=== PATIENT | male | born 1960 | race Caucasian/White ===

== ENCOUNTER → 2017-07-24 12:08 | Outpatient (CLI) | payer OTHER, SELFPAY ==
[2017-07-24 13:09] LABS: Add Manual Diff / Slide Review NO; Basophils Percent Auto 0.5 % (0-2); Eosinophils Percent Auto 3.9 % (2-4); Hematocrit 43.9 % (41-53); Hemoglobin 15.3 g/dL (13.5-17.5); Lymphocytes Percent Auto 42.1 % (25-40); Mean Corpuscular HGB Conc 34.7 % (30-36); Mean Corpuscular Hemoglobin 31.9 PG (26-34); Monocytes Percent Auto 7.1 % (3-14); Neutrophils Absolute Auto 2200 /uL (3000-5900); Neutrophils Percent Auto 46.4 % (50-75); Platelet Count 247 X10^3/uL (150-400); Red Blood Cell Count 4.78 X10^6/uL (4.5-5.9); Red Cell Distribution Width 12.7 % (11.6-14.8); White Blood Cell Count 4.8 X10^3/uL (4.5-11.0)
[2017-07-24 13:14] LABS: Alanine Aminotransferase 37 IU/L (21-72); Albumin 4.8 g/dL (3.5-5.0); Albumin Globulin Ratio 1.5 (1.0-2.8); Alkaline Phosphatase 38 U/L (38-126); Aspartate Aminotransferase 36 IU/L (17-59); BUN Creatinine Ratio 23.8 (6-22); Bilirubin Total 0.6 mg/dL (0.2-1.3); Calcium 9.8 mg/dL (8.4-10.2); Estimated Glomerular Filt Rate > 60.0 mL/min (>60); Globulin 3.2 g/dL (1.7-4.1); Glucose 119 mg/dL (70-100); HEMOLYSIS < 15 (0-50); Potassium 4.2 mmol/L (3.4-5.1); Sodium 143 mmol/L (137-145)
== END ==
PROVIDERS: PCP Family Medicine; Visit Provider Internal Medicine
DX: R07.9 Chest pain, unspecified (principal)
CPT/HCPCS: 80053; 85025; 86677

== ENCOUNTER → 2017-08-08 10:57 | Outpatient (CLI) | payer OTHER, SELFPAY ==
[2017-08-08 12:44] LABS: Occult Blood 1 Negative (Negative); Occult Blood 2 Negative
[2017-08-08 12:45] LABS: Occult Blood 3 Negative
== END ==
PROVIDERS: Family Provider Family Medicine; PCP Family Medicine; Visit Provider Internal Medicine
DX: R07.9 Chest pain, unspecified (principal)
CPT/HCPCS: 82270

== ENCOUNTER → 2018-05-27 11:31 | Outpatient (CLI) | payer OTHER, SELFPAY ==
--- NOTE | 2018-05-27 11:33 | DI.RAD.S_ITS ---
PROCEDURE: XR CHEST 2V INDICATIONS: chest pain TECHNIQUE: 2 views of the chest were acquired. COMPARISON: None. FINDINGS: Surgical changes and devices: None. Lungs and pleura: Lungs are clear. No pleural effusions or pneumothorax. Mediastinum: Mediastinal contours are normal. Heart size is normal. Bones and chest wall: No suspicious bony abnormalities. Soft tissues appear unremarkable. IMPRESSION: Normal for age, source of current chest pain symptoms is not seen. Dictated by: Jj Loving M.D. on 05/27/2018 at 13:07 Approved by: Jj Loving M.D. on 05/27/2018 at 13:08
== END ==
PROVIDERS: Family Provider Family Medicine; PCP Family Medicine; Visit Provider Family Medicine
DX: R07.9 Chest pain, unspecified (principal)
CPT/HCPCS: 71046

== ENCOUNTER → 2018-06-03 08:53 | Outpatient (CLI) | payer OTHER, SELFPAY ==
--- NOTE | 2018-06-03 08:56 | DI.RAD.S_ITS ---
PROCEDURE: FL UPPER GI W AIR INDICATIONS: CHEST PAIN COMPARISON: [facility], CR, XR CHEST 2V, 05/27/2018, 11:38. [facility], CT, THORAX WITHOUT CONTRAST, 09/28/2008, 7:48. FINDINGS: KUB: Preprocedural plate glass installer helper film demonstrates a nonobstructive bowel gas pattern. No suspicious abdominal calcifications. Visualized solid organ contours appear normal. Bony structures appear unremarkable. Esophagus: There is poor air contrast evaluation on this exam. There is normal esophageal peristalsis. No strictures, extrinsic mass effects, or diverticula. No hiatal hernia or elicited gastroesophageal reflux. There is normal transit of a calibrated barium tablet through the esophagus. There is mild multilevel degenerative change of the cervical spine, partially imaged on this exam. Stomach: The stomach is normally distensible, with normal rugal fold thickness. No mucosal masses or ulcers. Pylorus and duodenal bulb appear normal in morphology. Duodenal folds are normal in thickness as well. IMPRESSION: No upper gastrointestinal fluoroscopy findings to explain patient's reported chest pain. Consider followup CT of the chest or an esophagogastroduodenoscopy (EGD) for further evaluation if there is continued clinical concern. Dictated by: Jared Hirsch M.D. on 06/03/2018 at 15:20 Approved by: Jared Hirsch M.D. on 06/03/2018 at 15:30
[2018-06-03 10:09] LABS: Add Manual Diff / Slide Review NO; Basophils Absolute Auto 0 /uL (0-100); Basophils Percent Auto 0.9 % (0-2); Eosinophils Absolute Auto 100 /uL (0-450); Eosinophils Percent Auto 3.4 % (2-4); Hemoglobin 15.3 g/dL (13.5-17.5); Lymphocytes Absolute Auto 1800 /uL (1100-4500); Lymphocytes Percent Auto 44.2 % (25-40); Mean Corpuscular HGB Conc 33.9 % (30-36); Mean Corpuscular Hemoglobin 31.3 PG (26-34); Mean Corpuscular Volume 92.2 fL (80-100); Monocytes Absolute Auto 300 /uL (0-900); Monocytes Percent Auto 8.2 % (3-14); Neutrophils Absolute Auto 1700 /uL (1500-7000); Neutrophils Percent Auto 43.3 % (50-75); Platelet Count 247 X10^3/uL (150-400); Red Blood Cell Count 4.88 X10^6/uL (4.5-5.9); Red Cell Distribution Width 12.6 % (11.6-14.8)
[2018-06-03 10:25] LABS: Alanine Aminotransferase 37 IU/L (21-72); Albumin 4.8 g/dL (3.5-5.0); Albumin Globulin Ratio 1.7 (1.0-2.8); Alkaline Phosphatase 35 U/L (38-126); Amylase 64 U/L (30-110); Aspartate Aminotransferase 37 IU/L (17-59); BUN Creatinine Ratio 18.9 (6-22); Blood Urea Nitrogen 17 mg/dL (9-20); Calcium 9.4 mg/dL (8.4-10.2); Carbon Dioxide 30 mmol/L (22-32); Chloride 98 mmol/L (98-107); Cholesterol 198 mg/dL (140-199); Estimated Glomerular Filt Rate > 60.0 mL/min (>60); Globulin 2.8 g/dL (1.7-4.1); Glucose 100 mg/dL (70-100); HDL Cholesterol 98 mg/dL (40-60); HEMOLYSIS < 15 (0-50); LDL Cholesterol Calculated 89 mg/dL (<100); Lipase 62 U/L (23-300); Potassium 4.2 mmol/L (3.4-5.1); Sodium 137 mmol/L (137-145); Total Protein 7.6 g/dL (6.3-8.2); Triglycerides 53 mg/dL (35-150)
[2018-06-03 10:43] LABS: Thyroid Stimulating Hormone 2.64 uIU/mL (0.47-4.68)
== END ==
PROVIDERS: Family Provider Family Medicine; PCP Family Medicine; Visit Provider Family Medicine
DX: R07.9 Chest pain, unspecified (principal)
CPT/HCPCS: 36415; 74247; 80053; 80061; 82150; 83690; 84443; 85025; G0103

== ENCOUNTER → 2019-10-04 08:08 | Outpatient (CLI) | payer OTHER, SELFPAY ==
--- NOTE | 2019-10-04 | DI.RAD.S_ITS ---
PROCEDURE: FL JOINT INJECTION LARGE RT INDICATIONS: Other sprain of right hip, initial encounter COMPARISON: None. TECHNIQUE: The indications, alternatives, benefits, risks, and complications of the procedure were explained to the patient. Written informed consent was obtained and placed in the chart. The patient was placed in an appropriate position on the fluoroscopy table, and a site was chosen for percutaneous access under fluoroscopic guidance. The site was prepped and draped in a sterile fashion. Local anesthetic was administered using a 1% lidocaine solution. A hypodermic or spinal needle was then used to access the symptomatic joint. Intra-articular location of the needle tip was confirmed by injecting a small amount of contrast, followed by steroid administration. The needle was then withdrawn, and a bandage applied to the puncture site. FINDINGS: Joint injected: Right hip joint Medications injected: 4 mL total of 1 cc 40 mg/mL Kenalog and 3 cc 0.5% Ropivacaine mixture. Patient's pain before injection: 3 out of 10. Patient's pain after injection: 0 out of 10. Complications: None. IMPRESSION: Successful fluoroscopically guided administration of steroid and anaesthetic solution into the right hip joint. Dictated by: Rodolfo Lugo M.D. on 10/04/2019 at 11:02 Approved by: Rodolfo Lugo M.D. on 10/04/2019 at 11:10
== END ==
PROVIDERS: Family Provider Family Medicine; PCP Family Medicine; Referring Provider Orthopaedic Surgery; Visit Provider Orthopaedic Surgery
DX: S73.191A Other sprain of right hip, initial encounter (principal); X58.XXXA Exposure to other specified factors, initial encounter
CPT/HCPCS: 20610; 77002

== ENCOUNTER → 2019-11-18 10:02 | Outpatient (CLI) | payer OTHER, SELFPAY ==
--- NOTE | 2019-11-18 10:09 | DI.CT.S_ITS ---
PROCEDURE: CT SINUS SCREEN WO CON INDICATIONS: Other disturbances of smell and taste TECHNIQUE: Noncontrast 3.0 mm axial images acquired from the frontal sinuses to the mid-sella, with coronal and sagittal reformats. For radiation dose reduction, the following was used: automated exposure control, adjustment of mA and/or kV according to patient size. COMPARISON: None. FINDINGS: Image quality: Excellent. Maxillary Sinuses: No bony remodeling or destruction. There is [id number] right-sided and no left-sided mucosal thickening seen. There is a mucous retention cyst versus polyp seen involving the left maxillary sinus. Ethmoid Air Cells: No bony remodeling or destruction. [id number] mucosal thickening is seen within the ethmoid air cells. Sphenoid Sinuses: No bony remodeling or destruction. Sinuses are clear. Frontal Sinuses: No bony remodeling or destruction. Sinuses are clear. Ostiomeatal Complexes: Ostiomeatal complexes are patent, yet they are constitutionally narrowed. Bilateral infraorbital air cell septations can be seen. Miscellaneous: Visualized intra-orbital contents are normal. There is a prominent left-sided jed bullosa is seen, with mucosal thickening and calcification seen within the jed bullosa, as on series 4, image 26. . There is moderate rightward nasal septal deviation. IMPRESSION: Paranasal sinus disease is seen, which is most prominent within the inferior right maxillary sinus. There is an abnormal left jed bullosa is seen, with mucosal thickening and calcification seen within it. Moderate rightward nasal septal deviation can be seen. Constitutionally narrowed ostiomeatal complexes. Dictated by: Dandre Allison M.D. on 11/18/2019 at 9:47 Approved by: Dandre Allison M.D. on 11/18/2019 at 9:49
== END ==
PROVIDERS: Family Provider Family Medicine; PCP Family Medicine; Referring Provider Otolaryngology; Visit Provider Otolaryngology
DX: R43.8 Other disturbances of smell and taste (principal); J32.8 Other chronic sinusitis; J34.2 Deviated nasal septum
CPT/HCPCS: 70486

== ENCOUNTER → 2020-06-02 10:34 | Outpatient (CLI) | payer OTHER, SELFPAY ==
[2020-06-02] MEDS: COVID-19 VACC #1, MRNA(MOD) 100 MCG/0.5 ML VIAL IM (10:38)
== END ==
PROVIDERS: Family Provider Family Medicine; PCP Family Medicine; Visit Provider Internal Medicine
DX: Z23 Encounter for immunization (principal)
CPT/HCPCS: 0011A; 91301

== ENCOUNTER → 2020-06-29 08:55 | Outpatient (CLI) | payer OTHER, SELFPAY ==
[2020-06-29 11:02] LABS: Add Manual Diff / Slide Review NO; Basophils Absolute Auto 0 /uL (0-100); Basophils Percent Auto 0.6 % (0-2); Eosinophils Absolute Auto 200 /uL (0-450); Eosinophils Percent Auto 4.2 % (2-4); Hematocrit 45.6 % (41-53); Hemoglobin 15.6 g/dL (13.5-17.5); Lymphocytes Absolute Auto 1800 /uL (1100-4500); Lymphocytes Percent Auto 49.3 % (25-40); Mean Corpuscular HGB Conc 34.2 % (30-36); Mean Corpuscular Volume 93.4 fL (80-100); Monocytes Absolute Auto 300 /uL (0-900); Monocytes Percent Auto 9.2 % (3-14); Neutrophils Absolute Auto 1400 /uL (1500-7000); Neutrophils Percent Auto 36.7 % (50-75); Platelet Count 242 X10^3/uL (150-400); Red Blood Cell Count 4.88 X10^6/uL (4.5-5.9); Red Cell Distribution Width 12.6 % (11.6-14.8); White Blood Cell Count 3.7 X10^3/uL (4.5-11.0)
[2020-06-29 11:36] LABS: Alanine Aminotransferase 29 IU/L (<50); Albumin 4.5 g/dL (3.5-5.0); Albumin Globulin Ratio 1.5 (1.0-2.8); Alkaline Phosphatase 42 U/L (38-126); Aspartate Aminotransferase 38 IU/L (17-59); Bilirubin Total 0.9 mg/dL (0.2-1.3); Blood Urea Nitrogen 15 mg/dL (9-20); Calcium 9.7 mg/dL (8.4-10.2); Carbon Dioxide 28 mmol/L (22-32); Chloride 101 mmol/L (98-107); Estimated Glomerular Filt Rate > 60.0 mL/min (>60); Glucose 99 mg/dL (80-110); HEMOLYSIS < 15 (0-50); Potassium 4.5 mmol/L (3.4-5.1); Sodium 137 mmol/L (137-145); Total Protein 7.5 g/dL (6.3-8.2)
[2020-06-29 12:04] LABS: Prostate Specific Antigen Scrn 1.48 ng/mL (0.1-4.0)
== END ==
PROVIDERS: Family Provider Family Medicine; PCP Registered Nurse; Referring Provider Registered Nurse; Visit Provider Registered Nurse
DX: Z00.00 Encounter for general adult medical examination without abnormal findings (principal); Z12.5 Encounter for screening for malignant neoplasm of prostate; Z13.220 Encounter for screening for lipoid disorders
CPT/HCPCS: 36415; 80053; 85025; G0103

== ENCOUNTER → 2020-06-30 09:29 | Outpatient (CLI) | payer OTHER, SELFPAY ==
[2020-06-30] MEDS: COVID-19 VACC #2, MRNA(MOD) 100 MCG/0.5 ML VIAL IM (09:42)
== END ==
PROVIDERS: Family Provider Family Medicine; PCP Family Medicine; Visit Provider Internal Medicine
DX: Z23 Encounter for immunization (principal)
CPT/HCPCS: 0012A; 91301

== ENCOUNTER → 2020-07-04 07:08 | Outpatient (CLI) | payer OTHER, SELFPAY ==
--- NOTE | 2020-07-04 07:09 | DI.MRI.S_ITS ---
PROCEDURE: MR HAND RT WO CON INDICATIONS: Right hand pain TECHNIQUE: Noncontrast coronal T1 spin echo and T2 fast spin echo with fat saturation, axial proton density fast spin echo and T2 fast spin echo with fat saturation, sagittal T1 spin echo and STIR through the hand and fingers. COMPARISON: None. FINDINGS: Image quality: Excellent. Bones: The bones are normally aligned, without marrow contusions or fractures. No intra-osseous lesions. Mild degenerative changes are seen at the 1st carpometacarpal and 1st metacarpophalangeal joints. Subchondral cystic changes are seen at the 3rd and 5th metatarsal heads that are most likely degenerative. Soft tissues: Visualized muscles demonstrate normal bulk and internal signal. No intramuscular masses identified. No ganglion cysts. There is focal perforation of the central triangle fibrocartilage disc that is most likely degenerative. Subtle edema is seen at the dorsal aspect of the 2nd through 4th fingers that may indicate subtle tenosynovitis. IMPRESSION: 1. Possible subtle tenosynovitis of the 2nd through 4th fingers at the level of the proximal phalanges. 2. Focal degenerative perforation of the central triangular fibrocartilage disc. 3. 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 Dictated by: Collins Martinez M.D. on 07/04/2020 at 8:58 Approved by: Collins Martinze M.D. on 07/04/2020 at 9:11
== END ==
PROVIDERS: Family Provider Family Medicine; PCP Registered Nurse; Referring Provider Registered Nurse; Visit Provider Registered Nurse
DX: R29.898 Other symptoms and signs involving the musculoskeletal system (principal); M79.641 Pain in right hand; M18.11 Unilateral primary osteoarthritis of first carpometacarpal joint, right hand; M19.041 Primary osteoarthritis, right hand; R20.2 Paresthesia of skin
CPT/HCPCS: 73218

== ENCOUNTER 2020-10-11 09:30 | Outpatient (RCR) | payer OTHER, SELFPAY ==
--- NOTE | 2020-10-09 15:57 | PT.OIE ---
Current Diagnoses Trochanteric bursitis, right hip (10/09/20) Iliotibial band syndrome, unspecified leg (10/09/20) Past Medical History (Last Reviewed 06/27/20 @ 18:40 by JEANETTE Cardona) Elevated BP without diagnosis of hypertension Paresthesia Right hand weakness Visit Care Team Role Provider Type JEANETTE Cardona Primary Care Provider Advanced Rehabilitator Specialty: Medical Address: [address] [place] [address], [address] Email: [email or web address] Esteban Trejo MD Attending Provider Physician Referring Provider Specialty: Orthopedic Surgery Address: [address] [place] [address], [address] Email: [email or web address] [facility] Initial Evaluation PT-OP-A Visit Information Start: 10/09/20 10:08 Freq: Status: Active Protocol: Document 10/09/20 11:00 AMB (Rec: 10/09/20 15:51 AMB [email or web address]) Out-Patient Physical Therapy Visit Information Visit Information Visit Type Initial Evaluation Visit Start Time 11:00 Visit Stop Time 11:45 Total Visit Minutes 45 Visit Number 1 PT-OP-B Current Condition Start: 10/09/20 10:08 Freq: Status: Active Protocol: Document 10/09/20 11:00 AMB (Rec: 10/09/20 11:52 AMB [id number]) Current Condition History of Current Condition Onset Date Chronic worst the past few months Current Complaints R hip pain- chronic History of Current Condition Serge reports right hip pain at least a year on and off pain. Cortisone shot made it worse. 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 Diagnosed with cervical spinal stenosis causing R hand numbness recently. Physical therapy years ago helped - liked the ultrasound. Hoping to be done with work soon. Stopped riding his mountain bike and hiking because of the pain. Years ago helping unload truck and fell and landed on R hip. Denies popping, catching. Can shoot up next to ribs, generally doesn't shoot down. Stepping laterally or twisting can cause sharp pain. Prior Treatments and Tests Previous PT helped, cortisone shots have not. Treatment Goals Patient/Caregiver Goals Reduce pain so that he can work with less pain. Prior Functional Status Baseline Function- ADL's Independent Baseline Function- Mobility Independent Current Functional Impairments (Reported) Functional Limitations- ADL's Has stopped exercising, pain with floor transfers Personal Factors Other Personal Factors That May Effect Needs to carry heavy (80#) and Therapy/Recovery work physically, cervical spinal stenosis PT-OP-C Subjective Start: 10/09/20 10:08 Freq: Status: Active Protocol: Document 10/09/20 11:00 AMB (Rec: 10/09/20 15:51 AMB [email or web address]) Patient Questionnaires Lower Extremity Functional Scale LEFS Score 60 LEFS Impairment 1 to 19% Impaired (Score 63-79 ) PT-OP-F Manual Assessment Start: 10/09/20 10:08 Freq: Status: Active Protocol: Document 10/09/20 11:00 AMB (Rec: 10/09/20 15:57 AMB [email or web address]) Manual Assessments Soft Tissue Assessment Soft Tissue Mobility Assessment tenderness at greater trochanter and proximal 1/3 of IT band PT-OP-K Range of Motion Start: 10/09/20 10:08 Freq: Status: Active Protocol: Document 10/09/20 11:00 AMB (Rec: 10/09/20 15:56 AMB [email or web address]) Hip Goniometric Range of Motion Hip ROM Limitations Comments tight hamstrings bilaterally, painful with Hip IR on the right PT-OP-L Special Tests Start: 10/09/20 10:08 Freq: Status: Active Protocol: Document 10/09/20 11:00 AMB (Rec: 10/09/20 15:56 AMB [email or web address]) Special Tests Hip Special Tests Scour Test Test Results - NIRMAL Test Results + PT-OP-M Strength Start: 10/09/20 10:08 Freq: Status: Active Protocol: Document 10/09/20 11:00 AMB (Rec: 10/09/20 15:56 AMB [email or web address]) Hip Strength Hip Manual Muscle Testing Right Flexion (L2) 4+ Good+ Extension (S1) 4+ Good+ Abduction 4+ Good+ Left Flexion (L2) 4+ Good+ Extension (S1) 4+ Good+ Abduction 4 Good PT-OP-Q Treatments Start: 10/09/20 10:08 Freq: Status: Active Protocol: Document 10/09/20 11:00 AMB (Rec: 10/09/20 15:56 AMB [email or web address]) Therapeutic Exercises Supine Exercises hamstring/IT band stretch Supine Exercise Name with band Reps/Minutes 30x2 Manual Therapy Treatment Soft Tissue Mobilization 1 Body Location R IT band Mobilization Type Cross-Friction,Myofascial Release Intensity/Depth Moderate Body Position Supine PT-OP-T Assessment and Plan Start: 10/09/20 10:08 Freq: Status: Active Protocol: Document 10/09/20 11:00 AMB (Rec: 10/09/20 15:51 AMB [email or web address]) Physical Therapy Assessment Rehab Potential Rehabilitation Potential Good Evaluation Complexity Number of Personal Factors/Comorbidities 1-2 Number of Body Systems Impaired 4 or More Clinical Presentation at Evaluation Stable Impairments Impairments Functional Activities, Functional Mobility,Pain,ROM, Soft Tissue Mobility,Strength Goals Three Impairment Strength Short Term Goal (STG) Serge will improve his strength so that he can lift 50# from the floor to waist height without an increase in pain. STG Duration 4 weeks One Impairment pain Short Term Goal (STG) Serge will be able to complete a floor transfer without an increase in hip pain. STG Duration 4 weeks Break Out Man Goal (LTG) Serge will be able to roll over in bed without hip pain. LTG Duration 8 weeks Two Impairment HEP Short Term Goal (STG) Serge will be independent and consistent with a HEP STG Duration 4 weeks Assessment Summary Assessment Serge attends physical therapy with pain and weakness in his right hip. This is limiting his ability to work as a cutter operator tile. He denies popping/clicking/ locking/giving way/numbness/ tingling, but does have significant discomfort with palpation over IT band and greater trochanter and pain with hip IR. He will benefit from PT to improve his hip mobility and stability so that he can continue to work and can return to his previous function of exercising. Physical Therapy Plan Frequency and Duration Frequency of Treatment 2 Duration of Treatment 8 weeks Plan of Care Start Date 10/09/20 Plan of Care End Date 12/04/20 Therapeutic Interventions Therapeutic Interventions Gait Training,Home Exercise Program,Manual Therapy, Neuromuscular Re-education, Self-Care/Home Management, Therapeutic Activities, Therapeutic Exercises Modalities Cold Pack/Ice Massage,Electric Stimulation,Hot Packs, Ultrasound Next Visit Focus/Plan Next Note Type Treatment Note Next Visit Plan Stretching and manual to IT band, strengthening lateral stabilizers
--- NOTE | 2020-10-09 15:58 | PT.OPPOC ---
Physical, Occupational & Speech Therapy At [facility] Current Diagnoses Trochanteric bursitis, right hip (10/09/20) Iliotibial band syndrome, unspecified leg (10/09/20) Visit Care Team Role Provider Type JEANETTE Cardona Primary Care Provider Advanced Fuel System Maintenance Worker Specialty: Medical Address: [address] [place] [address], [address] Email: [email or web address] Esteban Trejo MD Attending Provider Physician Referring Provider Specialty: Orthopedic Surgery Address: [address] [place] [address], [address] Email: [email or web address] Plan Of Care PT-OP-T Assessment and Plan Start: 10/09/20 10:08 Freq: Status: Active Protocol: Document 10/09/20 11:00 AMB (Rec: 10/09/20 15:51 AMB [email or web address]) Physical Therapy Assessment Rehab Potential Rehabilitation Potential Good Evaluation Complexity Number of Personal Factors/Comorbidities 1-2 Number of Body Systems Impaired 4 or More Clinical Presentation at Evaluation Stable Impairments Impairments Functional Activities, Functional Mobility,Pain,ROM, Soft Tissue Mobility,Strength Goals Three Impairment Strength Short Term Goal (STG) Serge will improve his strength so that he can lift 50# from the floor to waist height without an increase in pain. STG Duration 4 weeks One Impairment pain Short Term Goal (STG) Serge will be able to complete a floor transfer without an increase in hip pain. STG Duration 4 weeks Lumber Trimmer Goal (LTG) Serge will be able to roll over in bed without hip pain. LTG Duration 8 weeks Two Impairment HEP Short Term Goal (STG) Serge will be independent and consistent with a HEP STG Duration 4 weeks Assessment Summary Assessment Serge attends physical therapy with pain and weakness in his right hip. 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 He denies popping/clicking/ locking/giving way/numbness/ tingling, but does have significant discomfort with palpation over IT band and greater trochanter and pain with hip IR. He will benefit from PT to improve his hip mobility and stability so that he can continue to work and can return to his previous function of exercising. Physical Therapy Plan Frequency and Duration Frequency of Treatment 2x/week Duration of Treatment 8 weeks Plan of Care Start Date 10/09/20 Plan of Care End Date 12/04/20 Therapeutic Interventions Therapeutic Interventions Gait Training,Home Exercise Program,Manual Therapy, Neuromuscular Re-education, Self-Care/Home Management, Therapeutic Activities, Therapeutic Exercises Modalities Cold Pack/Ice Massage,Electric Stimulation,Hot Packs, Ultrasound Next Visit Focus/Plan Next Note Type Treatment Note Next Visit Plan Stretching and manual to IT band, strengthening lateral stabilizers Plan of Care Dates Plan of Care Start Date 10/09/20 Plan of Care End Date 12/04/20 Electronically Signed by: Kirti Paez, PT 10/09/20 [id number] Please Sign and Return: I have reviewed this Plan of Care and certify that the skilled therapy services above are required to meet the patient?s needs. Physician Signature Date Printed Name and Credentials Clinical Instructor Signature Printed Name and Credentials
--- NOTE | 2020-10-11 10:38 | PT.OTN ---
Current Diagnoses Trochanteric bursitis, right hip (10/11/20) Iliotibial band syndrome, unspecified leg (10/11/20) Physical Therapy Treatment Note PT-OP-A Visit Information Start: 10/09/20 10:08 Freq: Status: Active Protocol: Document 10/11/20 09:30 MA (Rec: 10/11/20 10:37 MA [id number]) Out-Patient Physical Therapy Visit Information Visit Information Visit Type Treatment Note Visit Start Time 09:30 Visit Stop Time 10:13 Total Visit Minutes 43 Visit Number 2 Number of FILES SUPERVISOR Visits 1 PT-OP-B Current Condition Start: 10/09/20 10:08 Freq: Status: Active Protocol: Document 10/09/20 11:00 AMB (Rec: 10/09/20 11:52 AMB [id number]) Current Condition History of Current Condition Onset Date Chronic worst the past few months Current Complaints R hip pain- chronic History of Current Condition Serge reports right hip pain at least a year on and off pain. Cortisone shot made it worse. 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 Diagnosed with cervical spinal stenosis causing R hand numbness recently. Physical therapy years ago helped - liked the ultrasound. Hoping to be done with work soon. Stopped riding his mountain bike and hiking because of the pain. Years ago helping unload truck and fell and landed on R hip. Denies popping, catching. Can shoot up next to ribs, generally doesn't shoot down. Stepping laterally or twisting can cause sharp pain. Prior Treatments and Tests Previous PT helped, cortisone shots have not. Treatment Goals Patient/Caregiver Goals Reduce pain so that he can work with less pain. Prior Functional Status Baseline Function- ADL's Independent Baseline Function- Mobility Independent Current Functional Impairments (Reported) Functional Limitations- ADL's Has stopped exercising, pain with floor transfers Personal Factors Other Personal Factors That May Effect Needs to carry heavy (80#) and Therapy/Recovery work physically, cervical spinal stenosis PT-OP-C Subjective Start: 10/09/20 10:08 Freq: Status: Active Protocol: Document 10/11/20 09:30 MA (Rec: 10/11/20 10:37 MA [id number]) OP-PT Subjective Patient Comments Patient Comments My hip feels a little bit better than Friday. I am going to take time off work and go visit family the next two weeks and hope that gives me time to recover. PT-OP-F Manual Assessment Start: 10/09/20 10:08 Freq: Status: Active Protocol: Document 10/09/20 11:00 AMB (Rec: 10/09/20 15:57 AMB [email or web address]) Manual Assessments Soft Tissue Assessment Soft Tissue Mobility Assessment tenderness at greater trochanter and proximal 1/3 of IT band PT-OP-K Range of Motion Start: 10/09/20 10:08 Freq: Status: Active Protocol: Document 10/09/20 11:00 AMB (Rec: 10/09/20 15:56 AMB [email or web address]) Hip Goniometric Range of Motion Hip ROM Limitations Comments tight hamstrings bilaterally, painful with Hip IR on the right PT-OP-L Special Tests Start: 10/09/20 10:08 Freq: Status: Active Protocol: Document 10/09/20 11:00 AMB (Rec: 10/09/20 15:56 AMB [email or web address]) Special Tests Hip Special Tests Scour Test Test Results - NIRMAL Test Results + PT-OP-M Strength Start: 10/09/20 10:08 Freq: Status: Active Protocol: Document 10/09/20 11:00 AMB (Rec: 10/09/20 15:56 AMB [email or web address]) Hip Strength Hip Manual Muscle Testing Right Flexion (L2) 4+ Good+ Extension (S1) 4+ Good+ Abduction 4+ Good+ Left Flexion (L2) 4+ Good+ Extension (S1) 4+ Good+ Abduction 4 Good PT-OP-Q Treatments Start: 10/09/20 10:08 Freq: Status: Active Protocol: Document 10/11/20 09:30 MA (Rec: 10/11/20 10:37 MA [id number]) Therapeutic Exercises Supine Exercises hamstring/IT band stretch Supine Exercise Name with band Reps/Minutes 30x2 Sidelying Exercises Clamshells Sidelying Exercise Name Clamshells and reverse clamshells- hip ER/IR Side right Reps/Minutes 2x10 Hip ABD Sidelying Exercise Name hip ABD Side right Reps/Minutes 2x10 Sitting Exercises Self-STM Sitting Exercise Name raquet ball to R glutes Side right Reps/Minutes 2' Glute/ITB stretch Sitting Exercise Name Long sitting glute/ITB stretch with RLE crossed over LLE Other Exercises Foam roller Other Exercise Name rolling R ITB Reps/Minutes 2' Manual Therapy Treatment Soft Tissue Mobilization 1 Body Location R IT band & glute med Mobilization Type Cross-Friction,Myofascial Release Intensity/Depth Moderate Body Position Sidelying Self-Care/Home Management Treatment Education Patient Education Home Exercise Program Other Education HEP: Added ITB/glute long sitting stretch, SL hip abd, ER, and IR as well as self-STM to glutes and foam roller for ITB. Discussed using ice massage on hip for bursitis and ITB pain since pt feels ice helps. PT-OP-T Assessment and Plan Start: 10/09/20 10:08 Freq: Status: Active Protocol: Document 10/11/20 09:30 MA (Rec: 10/11/20 10:37 MA [id number]) Physical Therapy Assessment Goals Three Impairment Strength Short Term Goal (STG) Serge will improve his strength so that he can lift 50# from the floor to waist height without an increase in pain. STG Duration 4 weeks One Impairment pain Short Term Goal (STG) Serge will be able to complete a floor transfer without an increase in hip pain. STG Duration 4 weeks Marketing Senior Recruiter Goal (LTG) Serge will be able to roll over in bed without hip pain. LTG Duration 8 weeks Two Impairment HEP Short Term Goal (STG) Serge will be independent and consistent with a HEP STG Duration 4 weeks Assessment Summary Assessment Serge has minor pain in R hip today. He feels some relief after STM to ITB and glute med. Instructed pt on how to roll out ITB with foam roller with instructions to not roll directly over lateral hip to avoid aggravating bursitis, and using tennis ball to glutes against wall for self-STM while he is on vacation. Added SL hip ABD, ER , and IR (clamshells/reverse clamshells) as well as long sitting glute/ITB stretch to HEP with pt needing minor cues to keep hips aligned during SL exercises. Pt had good relief in prior PT sessions with Ultrasound to hip. Discussed trying US next appt and instructed pt to wear loose fitting clothing. Physical Therapy Plan Frequency and Duration Frequency of Treatment 2 Duration of Treatment 8 weeks Plan of Care Start Date 10/09/20 Plan of Care End Date 12/04/20 Therapeutic Interventions Therapeutic Interventions Gait Training,Home Exercise Program,Manual Therapy, Neuromuscular Re-education, Self-Care/Home Management, Therapeutic Activities, Therapeutic Exercises Modalities Cold Pack/Ice Massage,Electric Stimulation,Hot Packs, Ultrasound Next Visit Focus/Plan Next Note Type Treatment Note Next Visit Plan Stretching and manual to IT band, strengthening lateral stabilizers. Ultrasound for pain relief R ITB
--- NOTE | 2020-11-16 15:09 | PT.OPDS ---
Current Diagnoses Trochanteric bursitis, right hip (10/11/20) Iliotibial band syndrome, unspecified leg (10/11/20) Visit Care Team Role Provider Type JEANETTE Cardona Primary Care Provider [facility] [employer] Care Technician Specialty: Medical Address: [address] [place] [address], [address] Email: [email or web address] Esteban Trejo MD Attending Provider Physician Referring Provider Specialty: Orthopedic Surgery Address: [address] [place] [address], [id number] Email: [email or web address] Visit Number Visit Number 2 Discharge Summary PT-OP-B Current Condition Start: 10/09/20 10:08 Freq: Status: Active Protocol: Document 10/09/20 11:00 AMB (Rec: 10/09/20 11:52 AMB [id number]) Current Condition History of Current Condition Onset Date Chronic worst the past few months Current Complaints R hip pain- chronic History of Current Condition Serge reports right hip pain at least a year on and off pain. Cortisone shot made it worse. 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 Diagnosed with cervical spinal stenosis causing R hand numbness recently. Physical therapy years ago helped - liked the ultrasound. Hoping to be done with work soon. Stopped riding his mountain bike and hiking because of the pain. Years ago helping unload truck and fell and landed on R hip. Denies popping, catching. Can shoot up next to ribs, generally doesn't shoot down. Stepping laterally or twisting can cause sharp pain. Prior Treatments and Tests Previous PT helped, cortisone shots have not. Treatment Goals Patient/Caregiver Goals Reduce pain so that he can work with less pain. Prior Functional Status Baseline Function- ADL's Independent Baseline Function- Mobility Independent Current Functional Impairments (Reported) Functional Limitations- ADL's Has stopped exercising, pain with floor transfers Personal Factors Other Personal Factors That May Effect Needs to carry heavy (80#) and Therapy/Recovery work physically, cervical spinal stenosis PT-OP-C Subjective Start: 10/09/20 10:08 Freq: Status: Active Protocol: Document 10/11/20 09:30 MA (Rec: 10/11/20 10:37 MA [id number]) OP-PT Subjective Patient Comments Patient Comments My hip feels a little bit better than Friday. I am going to take time off work and go visit family the next two weeks and hope that gives me time to recover. PT-OP-F Manual Assessment Start: 10/09/20 10:08 Freq: Status: Active Protocol: Document 10/09/20 11:00 AMB (Rec: 10/09/20 15:57 AMB [email or web address]) Manual Assessments Soft Tissue Assessment Soft Tissue Mobility Assessment tenderness at greater trochanter and proximal 1/3 of IT band PT-OP-K Range of Motion Start: 10/09/20 10:08 Freq: Status: Active Protocol: Document 10/09/20 11:00 AMB (Rec: 10/09/20 15:56 AMB [email or web address]) Hip Goniometric Range of Motion Hip ROM Limitations Comments tight hamstrings bilaterally, painful with Hip IR on the right PT-OP-L Special Tests Start: 10/09/20 10:08 Freq: Status: Active Protocol: Document 10/09/20 11:00 AMB (Rec: 10/09/20 15:56 AMB [email or web address]) Special Tests Hip Special Tests Scour Test Test Results - NIRMAL Test Results + PT-OP-M Strength Start: 10/09/20 10:08 Freq: Status: Active Protocol: Document 10/09/20 11:00 AMB (Rec: 10/09/20 15:56 AMB [email or web address]) Hip Strength Hip Manual Muscle Testing Right Flexion (L2) 4+ Good+ Extension (S1) 4+ Good+ Abduction 4+ Good+ Left Flexion (L2) 4+ Good+ Extension (S1) 4+ Good+ Abduction 4 Good PT-OP-T Assessment and Plan Start: 10/09/20 10:08 Freq: Status: Active Protocol: Document 11/16/20 15:08 AMB (Rec: 11/16/20 15:09 AMB [email or web address]) Physical Therapy Assessment Assessment Summary Assessment Pt was seen for 2 appointments and instructed in a HEP, he then went on vacation and then got sick. When called to see if he wanted further appointments he stated he was doing well with his HEP and was ready for discharge. Physical Therapy Plan Discharge Physical Therapy Discharge Reasons Patient Request
== END 2020-11-17 07:53 | disposition home or self-care (01) ==
LOC: PHYS 09:30
PROVIDERS: PCP Registered Nurse; Referring Provider Orthopaedic Surgery Adult Reconstructive Orthopaedic Surgery; Visit Provider Orthopaedic Surgery Adult Reconstructive Orthopaedic Surgery
DX: M76.30 Iliotibial band syndrome, unspecified leg (principal); M70.61 Trochanteric bursitis, right hip
CPT/HCPCS: 97110; 97140; 97161

== ENCOUNTER → 2021-04-06 08:26 | Outpatient (CLI) | payer OTHER, SELFPAY ==
--- NOTE | 2021-04-06 08:28 | DI.RAD.S_ITS ---
PROCEDURE: XR CERVICAL SPINE 2V OR 3V INDICATIONS: neck pain TECHNIQUE: 3 view(s) of the cervical spine were acquired. COMPARISON: None. FINDINGS: Bones: No fractures or dislocations to the T2 level. The lateral masses of C1 appear intact on the odontoid view. No suspicious bony lesions. Moderate multilevel cervical spondylosis with degenerative endplate changes, disc space loss, and endplate osteophyte formation. Soft tissues: No prevertebral soft tissue swelling. IMPRESSION: Cervical spine without acute fracture or malalignment. Moderate multilevel cervical spondylosis most severe from C4-5 through C6-7. Dictated by: Romero Limon M.D. on 04/06/2021 at 10:15 Approved by: Romero Lmion M.D. on 04/06/2021 at 10:16
== END ==
PROVIDERS: PCP Registered Nurse; Referring Provider Registered Nurse; Visit Provider Registered Nurse
DX: M54.2 Cervicalgia (principal); M47.812 Spondylosis without myelopathy or radiculopathy, cervical region
CPT/HCPCS: 72040

== ENCOUNTER → 2023-12-08 13:51 | Outpatient (CLI) | payer OTHER, SELFPAY ==
[2023-12-08 15:16] LABS: Alanine Aminotransferase 30 IU/L (<50); Albumin 4.5 g/dL (3.5-5.0); Albumin Globulin Ratio 1.7 (1.0-2.8); Alkaline Phosphatase 40 U/L (38-126); Aspartate Aminotransferase 35 IU/L (17-59); BUN Creatinine Ratio 14.2 (6-22); Bilirubin Total 0.5 mg/dL (0.2-1.3); Blood Urea Nitrogen 17 mg/dL (9-20); Calcium 9.7 mg/dL (8.4-10.2); Carbon Dioxide 30 mmol/L (22-32); Chloride 103 mmol/L (98-107); Cholesterol 180 mg/dL (140-199); Estimated Glomerular Filt Rate > 60 mL/min (>60); Globulin 2.6 g/dL (1.7-4.1); Glucose 95 mg/dL (80-110); HDL Cholesterol 85 mg/dL (40-60); HEMOLYSIS < 15 (0-50); LDL Cholesterol Calculated 78 mg/dL (<100); Potassium 4.2 mmol/L (3.4-5.1); Sodium 140 mmol/L (137-145); Total Protein 7.1 g/dL (6.3-8.2); Triglycerides 85 mg/dL (35-150)
[2023-12-08 15:48] LABS: Prostate Specific Antigen Scrn 1.76 ng/mL (0.1-4.0)
[2023-12-08 16:16] LABS: HIV 1 & 2 Ab/Ag 4th Gen Combo NEGATIVE (NEGATIVE); Hep C Virus Ab w/Reflex Quant NEGATIVE s/c (NEGATIVE)
== END ==
PROVIDERS: PCP Family Medicine; Referring Provider Family Medicine; Visit Provider Family Medicine
DX: Z00.00 Encounter for general adult medical examination without abnormal findings (principal); Z13.220 Encounter for screening for lipoid disorders; Z12.5 Encounter for screening for malignant neoplasm of prostate; Z11.4 Encounter for screening for human immunodeficiency virus [HIV]; Z11.59 Encounter for screening for other viral diseases
CPT/HCPCS: 80053; 80061; 86803; 87389; G0103

== ENCOUNTER 2024-01-07 12:32 | Emergency (ER) | payer OTHER, SELFPAY ==
[2024-01-07] VITALS (7 sets, daily range): BP systolic 149–190; BP diastolic 83–102; PULSE 50–56; RESP 12–18; TEMP 36.6; O2SAT 98–100; BMI 24.7
--- NOTE | 2024-01-07 13:05 | EKG_ITS ---
[address] [address] Test Date: 2024-01-07 Pat Name: Serge Blanchard Department: [facility] Room: Gender: Male Damage Adjuster: AUGUSTIN : 1960 Requested By: Order Number: [id number] Reading MD: Julian Gonzalez MD Measurements Intervals [place] Rate: 57 P: 47 LA: 182 QRS: -10 QRSD: 76 T: 35 QT: 410 QTc: 399 Interpretive Statements Sinus bradycardia with premature supraventricular complexes Electronically Signed On 01-08-2024 8:05:50 PST by Julian Gonzalez MD
--- NOTE | 2024-01-07 13:05 | DI.RAD.S_ITS ---
PROCEDURE: XR CHEST 1V INDICATIONS: chest pain TECHNIQUE: One view of the chest was acquired. COMPARISON: [facility], CR, XR CHEST 2V, 05/27/2018, 11:38. FINDINGS: Surgical changes and devices: None. Lungs and pleura: Lungs are clear. No pleural effusions or pneumothorax. Mediastinum: Mediastinal contours appear normal. Heart size is normal. Bones and chest wall: No suspicious bony lesions. Overlying soft tissues appear unremarkable. IMPRESSION: No acute cardiopulmonary abnormality is seen. Dictated by: Kenny Velásquez M.D. on 01/07/2024 at 13:35 Approved by: Kenny Velásquez M.D. on 01/07/2024 at 13:37
--- NOTE | 2024-01-07 13:23 | DI.CT.S_ITS ---
PROCEDURE: CT HEAD/BRAIN WO CON INDICATIONS: dizziness TECHNIQUE: Noncontrast 4.5 mm thick angled axial sections acquired from the foramen magnum to the vertex, with coronal and sagittal reformats. For radiation dose reduction, the following was used: automated exposure control, adjustment of mA and/or kV according to patient size. COMPARISON: None. FINDINGS: Image quality: Diagnostic. CSF spaces: Basal cisterns are patent. No extra-axial fluid collections. Ventricles are normal in size and shape. Brain: No midline shift. No intracranial masses or hemorrhage. Jon-white matter interface is normal. Skull and face: Calvarium and visualized facial bones are intact, without suspicious lesions. Sinuses: Visualized sinuses and mastoids are clear. IMPRESSION: No acute intracranial pathology. Dictated by: Kenny Velásquez M.D. on 01/07/2024 at 13:50 Approved by: Kenny Velásquez M.D. on 01/07/2024 at 13:51
[2024-01-07 13:30] LABS: Add Manual Diff / Slide Review NO; Basophils Absolute Auto 0 /uL (0-100); Basophils Percent Auto 0.7 % (0-2); Eosinophils Absolute Auto 200 /uL (0-450); Eosinophils Percent Auto 2.9 % (2-4); Hematocrit 45.9 % (41-53); Hemoglobin 15.8 g/dL (13.5-17.5); Lymphocytes Absolute Auto 2000 /uL (1100-4500); Lymphocytes Percent Auto 37.3 % (25-40); Mean Corpuscular HGB Conc 34.4 % (30-36); Mean Corpuscular Hemoglobin 32.1 PG (26-34); Mean Corpuscular Volume 93.3 fL (80-100); Monocytes Absolute Auto 600 /uL (0-900); Neutrophils Absolute Auto 2600 /uL (1500-7000); Neutrophils Percent Auto 48.1 % (50-75); Platelet Count 265 X10^3/uL (150-400); Red Blood Cell Count 4.92 X10^6/uL (4.5-5.9); White Blood Cell Count 5.3 X10^3/uL (4.5-11.0)
[2024-01-07 13:37] LABS: Prothrombin Time 10.9 SECONDS (9.4-12.5)
[2024-01-07 13:39] LABS: PTT Partial Thromboplastin Tim 38 SECONDS (25.1-36.5)
[2024-01-07 13:40] LABS: Alanine Aminotransferase 33 IU/L (<50); Albumin 4.9 g/dL (3.5-5.0); Albumin Globulin Ratio 1.6 (1.0-2.8); Alkaline Phosphatase 42 U/L (38-126); Aspartate Aminotransferase 34 IU/L (17-59); Bilirubin Total 0.7 mg/dL (0.2-1.3); Blood Urea Nitrogen 16 mg/dL (9-20); Calcium 9.7 mg/dL (8.4-10.2); Carbon Dioxide 29 mmol/L (22-32); Chloride 99 mmol/L (98-107); Creatine Kinase 122 U/L (55-170); Estimated Glomerular Filt Rate > 60 mL/min (>60); Globulin 3.1 g/dL (1.7-4.1); Glucose 111 mg/dL (80-110); HEMOLYSIS < 15 (0-50); Lipase 76 U/L (23-300); Magnesium 2.1 mg/dL (1.6-2.3); Potassium 4.3 mmol/L (3.4-5.1); Sodium 135 mmol/L (137-145)
[2024-01-07 13:52] LABS: NT-proBNP (BNP-Adult 18+) 21 pg/mL (<125); Troponin I < 0.012 ng/mL (0.01-0.034)
--- NOTE | 2024-01-07 14:31 | PC.NURSE ---
patient states he had the flu shot 10 days ago and then on friday began feeling dizzy. He also says he has a headache and complains of dizziness when he stands up. His appetite has decreased due to nausea but has not has vomiting. He is a normally active person with no health concerns and is not able to work out on his machine at home due to dizziness.
[2024-01-07] MEDS: ACETAMINOPHEN 325 MG TABLET 650 MG PO (14:41)
--- NOTE | 2024-01-07 15:34 | ED_ITS ---
HPI - General Adult General Chief complaint: Dizziness Stated complaint: dizziness, abd px Time Seen by Provider: 01/07/24 15:34 Source: patient Mode of arrival: Ambulatory History of Present Illness HPI narrative: 63-year-old gentleman with no significant medical problems presents complaining of 3 days of dizziness, abdominal pain some mild nausea no diarrhea no vomiting no fevers. He has not complaining of tinnitus, headaches, vision changes. Does not note that the dizziness is worse with positional changes. No recent fevers, palpitations, cough Related Data Home Medications Medication Instructions Recorded Confirmed famotidine 20 mg tablet 20 mg PO BID 12/08/23 12/08/23 Previous Rx's Medication Instructions Recorded meclizine 25 mg tablet 25 mg PO TID PRN dizziness #20 tabs 01/07/24 Allergies Allergy/AdvReac Type Severity Reaction Status Date / Time etodolac [ETODOLAC] Allergy Mild HIVES/FROM Verified 01/07/24 13:04 LODINE sesame oil AdvReac Intermediate Headache Verified 01/07/24 14:47 sesame seed AdvReac Intermediate Headache Verified 01/07/24 14:46 Review of Systems Review of Systems Narrative: Pertinent positive and negative findings as per HPI Patient History Medical History (Updated 01/07/24 @ 15:59 by Brooke Fairbanks MD) GERD (gastroesophageal reflux disease) Neck pain Elevated BP without diagnosis of hypertension Paresthesia Right hand weakness Family History (Updated 12/19/23 @ 19:53 by Bernadette Dow) Father Heart disease Mother Cancer Sister Cancer Social History Smoking Status: Former smoker Smoking Status: Former smoker alcohol intake frequency: a few times a week Substance Use Type: does not use Exam Initial Vital Signs Initial Vital Signs: Vital Signs Temperature 98 F 01/07/24 13:00 Pulse Rate 50 L 01/07/24 13:00 Respiratory Rate 18 01/07/24 13:00 Blood Pressure 184/86 H 01/07/24 13:00 Pulse Oximetry 98 01/07/24 13:00 Oxygen Delivery Method Room Air 01/07/24 13:00 General: Healthy appearing, in no acute distress. Able to give a complete and coherent history. Well-nourished well-developed HEENT: Moist mucous membranes, normal sclera with reactive pupils, tympanic membranes are pearly edward bilaterally. He does not have positional nystagmus Neck: No cervical adenopathy Respiratory: Lungs are clear to auscultation, no wheezing no rales no rhonchi. Full and symmetrical air movement Cardiac: Regular rate and rhythm no murmurs no bruits Abdomen: Soft, nontender, good bowel tones, no flank pain Skin: Warm and dry, no rashes Neurologic: Grossly neurologically intact with no obvious asymmetries or abnormalities Extremities: No trauma, well perfused Psych: Cooperative, appropriate insight and affect Course Orders Ordered: ED Orders 01/07/24 13:05 XR chest 1V Stat EKG-12 Lead Stat 01/07/24 13:21 Complete Blood Count AUTO DIFF Stat Comprehensive Metabolic Panel Stat Lipase Stat Magnesium Stat NT-proBNP (BNP-Adult 18+) Stat PTT Partial Thromboplastin Sharif Stat Prothrombin Time INR Stat Troponin & CK Cardiac Panel Stat 01/07/24 13:23 CT head/brain wo con Stat Discontinued Medications Acetaminophen (Acetaminophen 325 Mg Tablet) 650 mg PO NOW ONE Stop: 01/07/24 14:38 Last Admin: 01/07/24 14:41 Dose: 650 mg Documented By: LEILA Vital Signs Vital signs: Vital Signs - 8 hr 01/07/24 13:00 01/07/24 14:41 01/07/24 15:00 Temperature 98 F Pulse Rate 50 L 55 L 53 L Respiratory Rate 18 13 13 Blood Pressure 184/86 H Pulse Oximetry 98 100 100 Oxygen Delivery Method Room Air 01/07/24 15:01 01/07/24 15:01 01/07/24 15:30 Temperature Pulse Rate 50 L Respiratory Rate 14 Blood Pressure 149/85 H 170/86 H Pulse Oximetry 99 Oxygen Delivery Method 01/07/24 15:30 Temperature Pulse Rate 51 L Respiratory Rate 13 Blood Pressure Pulse Oximetry 100 Oxygen Delivery Method Medical Decision Making Lab Data 01/07/24 13:21 01/07/24 13:21 Labs: Lab Results 01/07/24 Range/Units 13:21 WBC 5.3 (4.5-11.0) X10^3/uL RBC 4.92 (4.5-5.9) X10^6/uL Hgb 15.8 (13.5-17.5) g/dL Hct 45.9 (41-53) % MCV 93.3 (80-100) fL MCH 32.1 (26-34) PG MCHC 34.4 (30-36) % RDW 13.0 (11.6-14.8) % Plt Count 265 (150-400) X10^3/uL Neut % (Auto) 48.1 L (50-75) % Lymph % (Auto) 37.3 (25-40) % Sheridan % (Auto) 11.0 (3-14) % Eos % (Auto) 2.9 (2-4) % Baso % (Auto) 0.7 (0-2) % Neut # (Auto) 2600 (6027-2050) /uL Lymph # (Auto) 2000 (4727-6996) /uL Sheridan # (Auto) 600 (0-900) /uL Eos # (Auto) 200 (0-450) /uL Baso # (Auto) 0 (0-100) /uL PT 10.9 (9.4-12.5) SECONDS INR 1.0 (0.9-1.3) APTT 38 H (25.1-36.5) SECONDS Sodium 135 L (137-145) mmol/L Potassium 4.3 (3.4-5.1) mmol/L Chloride 99 (98-107) mmol/L Carbon Dioxide 29 (22-32) mmol/L BUN 16 (9-20) mg/dL Creatinine 0.84 (0.66-1.25) mg/dL Estimated GFR > 60 (>60) mL/min BUN/Creatinine Ratio 19.0 (6-22) Glucose 111 H (80-110) mg/dL Calcium 9.7 (8.4-10.2) mg/dL Magnesium 2.1 (1.6-2.3) mg/dL Total Bilirubin 0.7 (0.2-1.3) mg/dL AST 34 (17-59) IU/L ALT 33 (<50) IU/L Alkaline Phosphatase 42 (38-126) U/L Total Creatine Kinase 122 (55-170) U/L Troponin I < 0.012 (0.01-0.034) ng/mL NT-Pro-B Natriuret Pep 21 (<125) pg/mL Total Protein 8.0 (6.3-8.2) g/dL Albumin 4.9 (3.5-5.0) g/dL Globulin 3.1 (1.7-4.1) g/dL Albumin/Globulin Ratio 1.6 (1.0-2.8) Lipase 76 (23-300) U/L MDM Narrative Medical decision making narrative: CC: Dizziness and abdominal pain/nausea for 72 hours Complicating co-morbidities: None Data collected from: patient Medical records reviewed: Patient is quite healthy and other than visits for routine care and immunizations he has no significant medical history Differential considered: BPV, viral labyrinthitis, stroke, intracranial hemorrhage, viral syndrome, Exam documented above, pertinent findings include: Exam is entirely benign. He has no provoked nystagmus, tympanic membranes are pearly edward bilaterally remainder of exam is benign Lab Test results independently reviewed as above. Pertinent findings: CBC shows no significant abnormality Chemistries are reassuring Troponin is undetected ProBNP is appropriate Independently reviewed EKG: Sinus bradycardia at a rate of 57, PACs, no acute ischemia Imaging studies independently reviewed: CT scan of the head showed no intracranial mass or abnormality Chest x-ray is unremarkable with normal cardiac silhouette and no pulmonary effusions Treatments: Meclizine orally Discussion: Otherwise healthy 63-year-old gentleman with 3 days of dizziness and mild abdominal pain nausea. No other viral etiology. No signs of benign positional vertigo, no middle ear infection he has not dehydrated and no suggestion of stroke or intracranial mass. Most likely diagnosis at this point is going to be a viral labyrinthitis. Findings reviewed with him along with anticipated course of recovery at approximately day 7-10. He is given 25 mg of meclizine in the emergency department. If you find that that is effective I have given him a prescription for this and explain that it is also [id number]. I am not seeing any signs of acute findings that would require additional imaging or hospitalization. Questions are answered and he is discharge Discharge Plan Departure Patient Disposition: Home Clinical Impression: Dizziness Acute labyrinthitis Qualifiers: Laterality: unspecified laterality Qualified Code(s): H83.09 - Labyrinthitis, unspecified ear Instructions: DI for Labyrinthitis Activity Restrictions/Additional Instructions: Thank you for coming in today Your workup was very reassuring. There was no evidence of heart attack or heart attack like syndrome, no stroke no masses or tumors in your brain, no bacterial infection no signs of severe anemia, renal problems or liver problems. On physical exam there was no evidence of stroke or middle ear infection With the symptoms that you are experiencing I suspect that this is a mild viral syndrome that is affecting your inner ear, labyrinthitis. Most viral syndromes are going to last 7-10 days. Please stay hydrated, make sure that you do not fall because of the dizziness and if the meclizine that you were given in the emergency department proves helpful you can fill the prescription given. If it did not make a difference do not take medication that has not been effective A prescription was electronically transmitted to [facility] if you do choose to pick it If you find that you are getting worse, you are having new symptoms or additional concerns please feel free to return to the emergency department and I am happy to re-evaluate Prescriptions: New meclizine 25 mg tablet 25 mg PO TID PRN (Reason: dizziness) Qty: 20 0RF No Action famotidine 20 mg tablet 20 mg PO BID Referrals: Belle Kerns DO [Primary Care Provider] - Stand Alone Forms: Patient Portal/API/Survey
[2024-01-07] MEDS: MECLIZINE HCL 12.5 MG TABLET 25 MG PO (15:57)
== END 2024-01-07 16:16 | disposition home or self-care (01) ==
PROVIDERS: Emergency Provider Emergency Medicine; PCP Family Medicine
DX: R42 Dizziness and giddiness (principal); H83.09 Labyrinthitis, unspecified ear; R10.9 Unspecified abdominal pain; R11.0 Nausea; R00.1 Bradycardia, unspecified
CPT/HCPCS: 70450; 71045; 80053; 82550; 83690; 83735; 83880; 84484; 85025; 85610; 85730; 93005; 93010; 99283; 99284

== ENCOUNTER → 2024-12-09 07:46 | Outpatient (CLI) | payer OTHER, SELFPAY ==
[2024-12-09 08:24] LABS: Alanine Aminotransferase 31 IU/L (<50); Albumin 4.8 g/dL (3.5-5.0); Albumin Globulin Ratio 1.8 (1.0-2.8); Alkaline Phosphatase 51 U/L (38-126); Blood Urea Nitrogen 17 mg/dL (9-20); Calcium 9.5 mg/dL (8.4-10.2); Carbon Dioxide 27 mmol/L (22-32); Chloride 100 mmol/L (98-107); Cholesterol 185 mg/dL (140-199); Estimated Glomerular Filt Rate > 60 mL/min (>60); Globulin 2.7 g/dL (1.7-4.1); Glucose 97 mg/dL (70-99); HEMOLYSIS < 15 (0-50); Potassium 4.4 mmol/L (3.4-5.1); Sodium 136 mmol/L (137-145); Total Protein 7.5 g/dL (6.3-8.2); Triglycerides 69 mg/dL (35-150)
[2024-12-09 08:56] LABS: HDL Cholesterol 113 mg/dL (40-60)
== END ==
PROVIDERS: PCP Family Medicine; Referring Provider Family Medicine; Visit Provider Family Medicine
DX: Z00.00 Encounter for general adult medical examination without abnormal findings (principal); Z12.5 Encounter for screening for malignant neoplasm of prostate
CPT/HCPCS: 36415; 80053; 80061; G0103